=== PATIENT | female | born 1955 | race Two or more races ===

== ENCOUNTER 2016-08-08 17:40 | Emergency (ER) | payer OTHER ==
[~2016-08-08] VITALS: Ht 149.9 cm; Wt 58.5 kg
[2016-08-08 17:49] VITALS: BP 124/78
[2016-08-08] MEDS ORDERED: HYDROCODONE/APAP 5/325MG TABLET. PO ONE (18:30)
[2016-08-08] MEDS ORDERED: HYDR-971 PO (19:58)
--- NOTE | 2016-08-08 19:58 | PHYS DOC ---
Past Medical History Past Medical History: Arthritis, Other Additional Past Medical Histor: OSTEOPOROSIS Past Surgical History: Appendectomy, Other Additional Past Surgical Histo: L BREAST TUMOR REMOVAL Additional Information: occasional smoker Alcohol Use: None Drug Use: None Adult General Chief Complaint Chief Complaint: KNEE INJURY HPI HPI Patient is a 61 year old female who presents with right medial knee pain for 4 days. Patient states that she slipped on a newly waxed floor and grabbed the rail to catch herself. She twisted her knee. She has been ambulatory since the fall. She denies any numbness or tingling. She denies any other injuries. Her PCP is Dr. Mook Tolentino. She does not have an orthopedic doctor. Review of Systems Review of Systems Constitutional: Denies fever or chills. [] Musculoskeletal: Denies back pain. Reports right knee pain. Integument: Denies rash or skin lesions. [] Neurologic: Denies focal weakness or sensory changes. [] Current Medications Current Medications Current Medications Medications (Trade) Dose Ordered Sig/Naomy Start Time Stop Time Status Last Admin Dose Admin Acetaminophen/ Hydrocodone Bitart (Lortab 5/325) 1 tab 1X ONCE 08/08/16 18:30 08/08/16 18:31 DC 08/08/16 18:44 1 TAB Allergies Allergies Allergies Coded Allergies Type Severity Reaction Last Updated Verified ibuprofen Allergy Intermediate Hives 06/12/14 No Physical Exam Physical Exam Constitutional: Well developed, well nourished, no acute distress, non-toxic appearance. [] HENT: Normocephalic, atraumatic, oropharynx moist. [] Eyes: PERRLA, EOMI, conjunctiva normal, no discharge. [] Skin: Warm, dry, no erythema, no rash. [] Extremities: Right medial knee tenderness, ROM intact, mild right medial knee edema. 2+ DP and PT pulses. Less than 2 second capillary refill in the toes distally. Light touch sensation intact in the toes. There is no tenderness of the foot, ankle, calf, thigh, or hip. Neurologic: Alert and oriented X 3, normal motor function, normal sensory function, no focal deficits noted. [] Psychologic: Affect normal, judgement normal, mood normal. [] Current Patient Data Vital Signs Vital Signs Date Time Temp Pulse Resp B/P Pulse Ox O2 Delivery O2 Flow Rate FiO2 08/08/16 18:44 Room Air 08/08/16 17:49 98.1 116 18 98 98.1 EKG EKG [] Radiology/Procedures Radiology/Procedures Three-view x-ray of the right knee reviewed and interpreted by myself with Dr. Ronquillo. There are no acute fractures or dislocations. There is arthritic change , particularly in the medial knee compartment. Course & Med Decision Making Course & Med Decision Making Pertinent Labs and Imaging studies reviewed. (See chart for details) Patient presents with right knee pain after injury. She is ambulatory. On exam, she is neurovascularly intact without compartment syndrome. X-ray does not show any acute fracture or dislocation. She is given an Charlie wrap prior to discharge. She is instructed to follow-up with orthopedics. She is given prescription for Mauldin for pain. Return precautions were discussed. She verbalizes understanding and agrees with plan. Dragon Disclaimer Dragon Disclaimer This electronic medical record was generated, in whole or in part, using a voice recognition dictation system. Departure Departure Impression: Primary Impression: Knee sprain Disposition: 01 HOME, SELF-CARE Condition: STABLE Referrals: MOOK MATOS (PCP) ELIECER KAT MD Patient Instructions: Knee Sprain, [id number], Knee Wraps (Elastic Bandage) and RICE Additional Instructions: There were no broken bones or dislocations seen on your x-ray. Please wear the provided Charlie wrap to help with your knee pain. Please take the prescribed pain medication as instructed. Do not drive or operate heavy machinery while taking pain medication. Please follow-up with the orthopedic doctor listed below if your pain continues. Return to emergency department if you have any new or concerning symptoms. Scripts Hydrocodone/Apap 5-325 (Mauldin 5-325 Tablet)1 Each Tablet1 Tab PO PRN Q6HRS PRN PAIN #20 TAB Prov:YAZAN SILVA 08/08/16 Problem Qualifiers Primary Impression: Knee sprain Encounter type: initial encounter Involved ligament of knee: medial collateral ligament Laterality: right Qualified Code: S83.411A - Sprain of medial collateral ligament of right knee, initial encounter YAZAN SILVA Aug 08, 2016 19:58
--- NOTE | 2016-08-09 07:57 | RAD ---
Right knee, 3 views, 08/08/2016: History: Fall, pain There is moderate spurring medially at the knee joint. There is narrowing of the medial compartment of the knee joint with subchondral sclerosis. There is an ossification along the lower pole of the patella which has well-defined sclerotic margins and appears to be old. This may be a loose body in the joint or an old nonunited patellar fracture fragment. No acute fracture or dislocation is identified. IMPRESSION: 1. Moderate degenerative change with a probable loose body in the knee joint. 2. No acute bony abnormality is detected.
== END 2016-08-08 20:02 | disposition home or self-care (01) ==
LOC: ER 17:40
DX: S83.411A Sprain of medial collateral ligament of right knee, initial encounter (principal); F17.200 Nicotine dependence, unspecified, uncomplicated; M19.90 Unspecified osteoarthritis, unspecified site; Z88.6 Allergy status to analgesic agent; W01.0XXA Fall on same level from slipping, tripping and stumbling without subsequent striking against object, initial encounter; Y93.89 Activity, other specified; Y92.89 Other specified places as the place of occurrence of the external cause; Y99.8 Other external cause status
CPT/HCPCS: 73562; 99284